=== PATIENT | female | born 1990 | race Caucasian/White ===

== ENCOUNTER 2020-11-03 12:30 | Observation (INO) | payer BC ==
[2020-11-03 15:54] LABS: BASO % 0.3 % (0-2.0); EOS % 1.1 % (0-4.5); HEMATOCRIT 31.3 % (32.4-45.2); HEMOGLOBIN 10.3 GM/dL (10.7-15.3); LYMPH % 15.9 % (8-40); MCH 24.9 pg (25.7-33.7); MCHC 32.8 g/dl (32.0-36.0); MEAN CELL VOLUME 75.9 fl (80-96); MEAN PLT VOLUME 8.2 fl (7.5-11.1); MONO % 6.3 % (3.8-10.2); NEUT % 76.4 % (42.8-82.8); PLATELET COUNT 263 K/MM3 (134-434); RBC 4.13 M/mm3 (3.60-5.2); RDW 15.6 % (11.6-15.6); WHITE BLOOD COUNT 11.2 K/mm3 (4.0-10.0)
[2020-11-03 16:27] LABS: POTASSIUM 4.2 mmol/L (3.5-5.1)
[2020-11-03 16:29] LABS: ALBUMIN 2.9 g/dl (3.4-5.0); BLOOD UREA NITROGEN 8.6 mg/dL (7-18)
[2020-11-03 16:31] LABS: ALBUMIN 2.8 g/dl (3.4-5.0)
[2020-11-03 16:33] LABS: CREATININE 0.5 mg/dL (0.55-1.3)
[2020-11-03 16:34] LABS: BILIRUBIN,DIRECT 0.3 mg/dL (0.0-0.2); BILIRUBIN,TOTAL 0.7 mg/dL (0.2-1); TOT PROT 6.6 g/dl (6.4-8.2)
[2020-11-03 16:36] LABS: TOT PROT 6.6 g/dl (6.4-8.2)
[2020-11-03 17:14] LABS: PH,URINE 5.5 (5.0-8.0); URINE APPEARANCE CLEAR; URINE BILIRUBIN NEGATIVE (NEGATIVE); URINE COLOR YELLOW; URINE GLUCOSE (UA) NEGATIVE (NEGATIVE); URINE KETONE 1+ (NEGATIVE); URINE LEUK ESTERASE NEGATIVE (NEGATIVE); URINE NITRITE NEGATIVE (NEGATIVE); URINE PROTEIN NEGATIVE (NEGATIVE); URINE UROBILINOGEN 0.2 mg/dL (0.2-1.0)
[2020-11-03 17:22] LABS: EPI CELLS 25 /uL (0-25.1); HYALINE CASTS 1 /uL (0-3.1); URINE BACTERIA 322 /uL (0-1359); URINE RBC 22 /uL (0-23.9); URINE WBC 16 /uL (0-25.8)
[2020-11-03 19:10] VITALS: BMI 37.4
[2020-11-04 09:01] LABS: BASO % 0.5 % (0-2.0); EOS % 2.1 % (0-4.5); HEMATOCRIT 30.3 % (32.4-45.2); HEMOGLOBIN 9.9 GM/dL (10.7-15.3); LYMPH % 20.6 % (8-40); MCHC 32.6 g/dl (32.0-36.0); MEAN CELL VOLUME 76.6 fl (80-96); MEAN PLT VOLUME 8.5 fl (7.5-11.1); MONO % 8.3 % (3.8-10.2); NEUT % 68.5 % (42.8-82.8); PLATELET COUNT 227 K/MM3 (134-434); RBC 3.95 M/mm3 (3.60-5.2); WHITE BLOOD COUNT 9.4 K/mm3 (4.0-10.0)
[2020-11-04 09:10] LABS: POTASSIUM 4.3 mmol/L (3.5-5.1)
[2020-11-04 09:13] LABS: ALBUMIN 2.6 g/dl (3.4-5.0); BLOOD UREA NITROGEN 7.4 mg/dL (7-18); CALCIUM 8.6 mg/dL (8.5-10.1)
[2020-11-04 09:16] LABS: CREATININE 0.5 mg/dL (0.55-1.3)
[2020-11-04 09:17] LABS: BILIRUBIN,TOTAL 0.8 mg/dL (0.2-1)
[2020-11-04 11:52] VITALS: BP 129/70; PULSE 96; TEMP 97.9
== END 2020-11-04 17:30 | disposition home or self-care (01) ==
LOC: JDEL 12:30 → JLDR 17:00 → J3W 20:30
PROVIDERS: ADMIT Obstetrics & Gynecology; ATTEND Obstetrics & Gynecology
DX: O60.00 Preterm labor without delivery, unspecified trimester (principal)
CPT/HCPCS: 36415; 76705-TC; 80053; 80076; 81003; 83615; 84550; 85025; 99285-25; C9803; G0378; U0003

== ENCOUNTER 2020-11-30 08:06 | Inpatient (IN) | payer BC ==
[2020-11-30] MEDS ORDERED: CITRIC ACID/SODIUM CITRATE 30 ML UNIT-DOSE CUP PO ONE (09:44)
[2020-11-30 09:55] VITALS: BMI 37.8
[2020-11-30] MEDS ORDERED: ELECTROLYTE-148 SOLN 500 ML IV ONE (10:26)
[2020-11-30] MEDS ORDERED: ELECTROLYTE-148 SOLN 1,000 ML IV SCH (10:30)
[2020-11-30] MEDS ORDERED: morphine SULFATE/Preservative Free 0.5 MG/ML (1cc Syringe) ONE (11:19)
[2020-11-30] MEDS ORDERED: KETOROLAC TROMETHAMINE 30 MG/1 ML VIAL ONE (12:09)
[2020-11-30 12:21] LABS: CORD BASE EXCESS -0.6 mmol/L (0-2); CORD PCO2 49.6 mmHg (30-78); CORD pH 7.338 (7.14-7.44)
[2020-11-30 12:23] LABS: CORD HCO3 25.6 mmHg (20-29); CORD PCO2 58.6 mmHg (30-78); CORD pH 7.258 (7.14-7.44)
[2020-11-30] MEDS ORDERED: OXYTOCIN 20 UNITS in 0.9% NS 20 UNIT/1,000 ML INFUS.BAG IV SCH (12:30)
[2020-11-30] MEDS ORDERED: SENNOSIDES/DOCUSATE COMBO (SENNA PLUS) TABLET (UD) PO PRN (12:30)
[2020-11-30] MEDS ORDERED: METHYLERGONOVINE MALEATE 0.2 MG/1 ML AMP IM PRN (12:30)
[2020-11-30] MEDS ORDERED: WITCH HAZEL 50% (TUCKS) 40 PAD/JAR PAD TP PRN (12:30)
[2020-11-30] MEDS ORDERED: IBUPROFEN 800 MG/8 ML IJ IVPB PRN (12:30)
[2020-11-30] MEDS ORDERED: oxyCODONE HCL 5 MG TABLET PO PRN (12:30)
[2020-11-30] MEDS ORDERED: OXYTOCIN 20 UNITS in 0.9% NS 20 UNIT/1,000 ML INFUS.BAG IV ONE (13:19)
[2020-12-01] MEDS: SIMETHICONE 80 MG TAB.CHEW (FP) PO PRN ×3 (06:02→23:27)
[2020-12-01] MEDS: IBUPROFEN 600 MG TABLET (FP) PO PRN ×4 (06:02→23:26)
[2020-12-01] MEDS: ACETAMINOPHEN 325 MG TABLET (FP) PO PRN ×4 (06:03→23:26)
[2020-12-01 07:12] LABS: BASO % 0.4 % (0-2.0); EOS % 1.5 % (0-4.5); HEMATOCRIT 27.4 % (32.4-45.2); HEMOGLOBIN 9.1 GM/dL (10.7-15.3); LYMPH % 15.7 % (8-40); MCH 24.4 pg (25.7-33.7); MCHC 33.2 g/dl (32.0-36.0); MEAN CELL VOLUME 73.3 fl (80-96); MEAN PLT VOLUME 8.4 fl (7.5-11.1); MONO % 6.2 % (3.8-10.2); NEUT % 76.2 % (42.8-82.8); PLATELET COUNT 218 K/MM3 (134-434); RBC 3.74 M/mm3 (3.60-5.2); RDW 16.7 % (11.6-15.6); WHITE BLOOD COUNT 10.1 K/mm3 (4.0-10.0)
[2020-12-01] MEDS: ENOXAPARIN NA (PORCINE) 40 MG/0.4 ML DISP.SYRIN SQ SCH (10:13)
[2020-12-01] MEDS: PRENATAL VITAMINS W/ FOLIC ACID TABLET (FP) PO SCH (10:13)
[2020-12-01] MEDS ORDERED: BISACODYL 10 MG SUPP.RECT RC PRN (12:30)
[2020-12-02 08:11] LABS: BASO % 0.3 % (0-2.0); EOS % 2.1 % (0-4.5); HEMATOCRIT 26.8 % (32.4-45.2); HEMOGLOBIN 8.9 GM/dL (10.7-15.3); LYMPH % 17.8 % (8-40); MCH 24.7 pg (25.7-33.7); MCHC 33.3 g/dl (32.0-36.0); MEAN CELL VOLUME 74.3 fl (80-96); MEAN PLT VOLUME 8.4 fl (7.5-11.1); MONO % 7.3 % (3.8-10.2); NEUT % 72.5 % (42.8-82.8); PLATELET COUNT 233 K/MM3 (134-434); RDW 16.6 % (11.6-15.6); WHITE BLOOD COUNT 8.8 K/mm3 (4.0-10.0)
[2020-12-02] MEDS: PRENATAL VITAMINS W/ FOLIC ACID TABLET (FP) PO SCH (09:01)
[2020-12-02] MEDS: IBUPROFEN 600 MG TABLET (FP) PO PRN (09:01)
[2020-12-02] MEDS: ENOXAPARIN NA (PORCINE) 40 MG/0.4 ML DISP.SYRIN SQ SCH (09:01)
[2020-12-02] MEDS: ACETAMINOPHEN 325 MG TABLET (FP) PO PRN (09:02)
[2020-12-02 09:12] VITALS: BP 127/83; PULSE 77; TEMP 98.4
[2020-12-02 09:21] LABS: ALBUMIN 2.5 g/dl (3.4-5.0)
[2020-12-02 09:24] LABS: BILIRUBIN,DIRECT 0.2 mg/dL (0.0-0.2)
[2020-12-02 09:26] LABS: BILIRUBIN,TOTAL 0.7 mg/dL (0.2-1); TOT PROT 5.7 g/dl (6.4-8.2)
== END 2020-12-02 12:15 | disposition home or self-care (01) | DRG 787 ==
LOC: JLDR 08:06 → J3W 13:50
PROVIDERS: ADMIT Obstetrics & Gynecology; ATTEND Obstetrics & Gynecology
PROC: 10D00Z1 Extraction of Products of Conception, Low, Open Approach (ICD-10-PCS; principal; 2020-11-30)
DX: O32.1XX0 Maternal care for breech presentation, not applicable or unspecified (principal); O16.3 Unspecified maternal hypertension, third trimester; O99.214 Obesity complicating childbirth; E66.9 Obesity, unspecified; O90.81 Anemia of the puerperium; D64.9 Anemia, unspecified; R74.01 Elevation of levels of liver transaminase levels; Z14.8 Genetic carrier of other disease; Z3A.39 39 weeks gestation of pregnancy; Z37.0 Single live birth
CPT/HCPCS: 36415; 36600; 80076; 82803; 85025; 88307-TC

== ENCOUNTER 2022-10-07 04:26 | Day surgery (SDC) | payer BC ==
[2022-10-05 16:53] VITALS: BMI 32.5
[~2022-10-07 04:26] MED LIST: ceFAZolin SODIUM 1 GM VIAL IVPB ONE
[2022-10-07] MEDS ORDERED: LIDOCAINE HCL/PF 2% SDV 5ML VIAL ONE (13:57)
[2022-10-07] MEDS ORDERED: PROPOFOL 20 ML ONE (13:58)
[2022-10-07] MEDS ORDERED: MIDAZOLAM HCL 2 MG/2 ML SINGLE DOSE VIAL ONE (13:58)
[2022-10-07] MEDS ORDERED: oxyCODONE HCL 5 MG TABLET PO PRN (14:25)
[2022-10-07] MEDS ORDERED: IBUPROFEN 400 MG TABLET (FP) PO PRN (14:25)
[2022-10-07] MEDS ORDERED: ACETAMINOPHEN 325 MG TABLET (FP) PO PRN (14:25)
[2022-10-07] MEDS ORDERED: ONDANSETRON 4 MG/2 ML VIAL IVPUSH PRN (14:25)
[2022-10-07] MEDS ORDERED: DEXTROSE 5% IVPB ONE (14:28)
[2022-10-07] MEDS ORDERED: WATER IVPB ONE (14:28)
[2022-10-07] MEDS ORDERED: DOXYCYCLINE IVPB ONE (14:28)
[2022-10-07] MEDS ORDERED: DOXYCYCLINE HYCLATE 100 MG VIAL IVPB ONE (14:48)
[2022-10-07] MEDS ORDERED: METHYLERGONOVINE MALEATE 0.2 MG/1 ML AMP IM ONE (14:48)
[2022-10-07] MEDS ORDERED: LACTATED RINGERS SOLUTION 1,000 ML IV SCH (15:00)
[2022-10-07] MEDS ORDERED: ACETAMINOPHEN INJECTION 100 ML IVPB ONE (15:27)
[2022-10-07 16:54] VITALS: RESP 20; TEMP 97.8
[2022-10-07 18:18] VITALS: BP 124/66; PULSE 92
== END 2022-10-07 18:20 | disposition home or self-care (01) ==
LOC: JASU-SURG 04:26
PROVIDERS: ATTEND Obstetrics & Gynecology
PROC: 10A07ZZ Abortion of Products of Conception, Via Natural or Artificial Opening (ICD-10-PCS; principal; 2022-10-07 15:00)
DX: Z33.2 Encounter for elective termination of pregnancy (principal)
CPT/HCPCS: 76998-TC; 88305-TC; 94760

== ENCOUNTER 2024-04-13 20:05 | Inpatient (IN) | payer BC ==
[2024-04-13 21:27] LABS: BASO % 0.3 % (0-2.0); EOS % 1.9 % (0-4.5); HEMATOCRIT 31.2 % (32.4-45.2); HEMOGLOBIN 10.3 GM/dL (10.7-15.3); LYMPH % 22.8 % (8-40); MCH 23.9 pg (25.7-33.7); MCHC 32.8 g/dl (32.0-36.0); MEAN CELL VOLUME 72.9 fl (80-96); MEAN PLT VOLUME 8.6 fl (7.5-11.1); PLATELET COUNT 240 10^3/uL (134-434); RBC 4.28 M/mm3 (3.60-5.2); RDW 16.5 % (11.6-15.6); WHITE BLOOD COUNT 9.4 K/mm3 (4.0-10.0)
[2024-04-13 21:28] LABS: INR 0.95 (0.83-1.09); PROTHROMBIN TIME (PATIENT) 10.9 SEC (9.7-13.0)
[2024-04-13 21:31] LABS: ACTIVATED PTT 26.5 SECONDS (25.2-36.5)
[2024-04-13] MEDS ORDERED: BETAMET ACET/BETAMET NA PH 30 MG/5 ML VIAL ONE (21:39)
[2024-04-13 21:42] LABS: POTASSIUM 4.2 mmol/L (3.5-5.1)
[2024-04-13 21:43] LABS: CALCIUM 9.2 mg/dL (8.5-10.1)
[2024-04-13 21:44] LABS: BLOOD UREA NITROGEN 8.1 mg/dL (7-18)
[2024-04-13 21:47] LABS: CREATININE 0.6 mg/dL (0.55-1.3)
[2024-04-13] MEDS: BETAMET ACET/BETAMET NA PH 30 MG/5 ML VIAL IM ONE (21:50)
[2024-04-13] MEDS: AZITHROMYCIN 500 MG TABLET PO ONE (22:20)
[2024-04-13] MEDS: valACYclovir HCL 500 MG TABLET (FP) PO SCH (22:20)
[2024-04-13] MEDS ORDERED: AMPICILLIN SODIUM 2 GM VIAL ONE (22:29)
[2024-04-13 22:37] LABS: HIV INTERPRETATION NEGATIVE (NEGATIVE)
[2024-04-13] MEDS: AMPICILLIN - 2 GM in SODIUM CHLORIDE 100 ML IVPB SCH (22:45)
[2024-04-13] MEDS: ELECTROLYTE-148 SOLN 500 ML IV ONE (22:50)
[2024-04-13] MEDS: ELECTROLYTE-148 SOLN 1,000 ML IV SCH (22:51)
[2024-04-14 03:27] VITALS: BMI 37.0
[2024-04-14] MEDS ORDERED: SODIUM CHLORIDE 100 ML IVPB ONE ×4 (03:27→21:02)
[2024-04-14] MEDS ORDERED: AMPICILLIN SODIUM 2 GM VIAL ONE ×4 (03:27→21:02)
[2024-04-14] MEDS ORDERED: BUTORPHANOL TARTRATE 2 MG/ML VIAL ONE (05:01)
[2024-04-14] MEDS ORDERED: PROMETHAZINE HCL 25 MG/1 ML VIAL ONE (05:01)
[2024-04-14] MEDS: BUTORPHANOL TARTRATE 2 MG/ML VIAL IVPB ONE (05:10)
[2024-04-14] MEDS: PROMETHAZINE HCL 25 MG/1 ML VIAL IVPB ONE (05:10)
[2024-04-14] MEDS: BETAMET ACET/BETAMET NA PH 30 MG/5 ML VIAL IM ONE (10:15)
[2024-04-14] MEDS: SERTRALINE HCL 50 MG TABLET (FP) PO SCH (10:38)
[2024-04-14 11:42] LABS: BASO % 0.4 % (0-2.0); EOS % 0.1 % (0-4.5); HEMATOCRIT 31.5 % (32.4-45.2); HEMOGLOBIN 10.1 GM/dL (10.7-15.3); LYMPH % 13.5 % (8-40); MCH 23.8 pg (25.7-33.7); MEAN CELL VOLUME 74.5 fl (80-96); MEAN PLT VOLUME 8.9 fl (7.5-11.1); MONO % 3.9 % (3.8-10.2); NEUT % 82.1 % (42.8-82.8); PLATELET COUNT 259 10^3/uL (134-434); RBC 4.22 M/mm3 (3.60-5.2); RDW 16.4 % (11.6-15.6)
[2024-04-15] MEDS ORDERED: AMPICILLIN SODIUM 2 GM VIAL ONE ×2 (03:06→09:18)
[2024-04-15] MEDS ORDERED: SODIUM CHLORIDE 100 ML IVPB ONE (03:06)
[2024-04-15] MEDS ORDERED: ACETAMINOPHEN 325 MG TABLET (FP) PO PRN (12:22)
[2024-04-15] MEDS ORDERED: ONDANSETRON 4 MG/2 ML VIAL IVPUSH PRN (12:22)
[2024-04-15] MEDS ORDERED: IBUPROFEN 600 MG TABLET (FP) PO PRN (12:22)
[2024-04-15] MEDS ORDERED: morphine SULFATE/PF 1 MG/2 ML (2cc Syringe - QUVA) ONE (12:30)
[2024-04-15] MEDS ORDERED: SODIUM CHLORIDE 0.9% P/F 10 ML VIAL IJ ONE (12:31)
[2024-04-15] MEDS ORDERED: PHENYLEPHRINE HCL 10 MG/1 ML SINGLE DOSE VIAL ONE (12:31)
[2024-04-15] MEDS ORDERED: ceFAZolin SODIUM 1 GM VIAL ONE (12:31)
[2024-04-15] MEDS ORDERED: OXYTOCIN 10 UNITS/ML VIAL ONE ×2 (12:57→13:30)
[2024-04-15] MEDS ORDERED: ONDANSETRON 4 MG/2 ML VIAL ONE (13:11)
[2024-04-15] MEDS ORDERED: METOCLOPRAMIDE HCL INJECTION 10 MG/2 ML VIAL ONE (13:11)
[2024-04-15] MEDS ORDERED: MIDAZOLAM HCL 2 MG/2 ML SINGLE DOSE VIAL ONE (13:29)
[2024-04-15 13:45] LABS: CORD HCO3 29.6 mmHg (20-29); CORD PCO2 69.6 mmHg (30-78); CORD pH 7.246 (7.14-7.44)
[2024-04-15 13:47] LABS: CORD BASE EXCESS -1.2 mmol/L (0-2); CORD HCO3 24.9 mmHg (20-29); CORD PCO2 46.3 mmHg (30-78); CORD pH 7.349 (7.14-7.44)
[2024-04-15] MEDS: morphine SULFATE/PF 1 MG/2 ML (2cc Syringe - QUVA) EP ONE (14:00)
[2024-04-15] MEDS ORDERED: OXYTOCIN 20 UNITS in 0.9% NS 20 UNIT/1,000 ML INFUS.BAG IV ONE (15:40)
[2024-04-15] MEDS ORDERED: METHYLERGONOVINE MALEATE 0.2 MG/1 ML AMP IM PRN (16:00)
[2024-04-15] MEDS ORDERED: BENZOCAINE 20% 57 GM BOTTLE TP PRN (16:00)
[2024-04-15] MEDS ORDERED: WITCH HAZEL 50% (TUCKS) 40 PAD/JAR PAD TP PRN (16:00)
[2024-04-15] MEDS: OXYTOCIN 20 UNITS in 0.9% NS 20 UNIT/1,000 ML INFUS.BAG IV SCH (16:15)
[2024-04-15] MEDS: IBUPROFEN 800 MG/8 ML IJ IVPB PRN (21:56)
[2024-04-16 02:12] VITALS: RESP 18
[2024-04-16] MEDS ORDERED: oxyCODONE HCL 5 MG TABLET PO PRN ×2 (04:00)
[2024-04-16 07:22] LABS: BASO % 0.9 % (0-2.0); EOS % 1.1 % (0-4.5); HEMATOCRIT 30.2 % (32.4-45.2); HEMOGLOBIN 9.7 GM/dL (10.7-15.3); LYMPH % 21.5 % (8-40); MCH 24.1 pg (25.7-33.7); MEAN CELL VOLUME 75.2 fl (80-96); MEAN PLT VOLUME 8.9 fl (7.5-11.1); MONO % 5.7 % (3.8-10.2); NEUT % 70.8 % (42.8-82.8); PLATELET COUNT 217 10^3/uL (134-434); RBC 4.01 M/mm3 (3.60-5.2); RDW 16.8 % (11.6-15.6); WHITE BLOOD COUNT 9.2 K/mm3 (4.0-10.0)
[2024-04-16] MEDS: PRENATAL VITAMINS W/ FOLIC ACID TABLET (FP) PO SCH (09:40)
[2024-04-16] MEDS ORDERED: BISACODYL 10 MG SUPP.RECT RC PRN (16:00)
[2024-04-16] MEDS: ACETAMINOPHEN 325 MG TABLET (FP) PO PRN (17:41)
[2024-04-16] MEDS: SIMETHICONE 80 MG TAB.CHEW (FP) PO PRN (21:25)
[2024-04-16] MEDS: IBUPROFEN 600 MG TABLET (FP) PO PRN (21:42)
[2024-04-17 08:56] VITALS: BP 128/77; PULSE 81; TEMP 98.1
== END 2024-04-17 11:32 | disposition home or self-care (01) | DRG 788 ==
LOC: NEWFOCUS 20:05 → JLDR 21:10 → J3W 04-15 17:00
PROVIDERS: ADMIT Obstetrics & Gynecology; ATTEND Obstetrics & Gynecology
PROC: 10D00Z1 Extraction of Products of Conception, Low, Open Approach (ICD-10-PCS; principal; 2024-04-15)
DX: O42.913 Preterm premature rupture of membranes, unspecified as to length of time between rupture and onset of labor, third trimester (principal); O34.219 Maternal care for unspecified type scar from previous cesarean delivery; Z3A.35 35 weeks gestation of pregnancy; Z37.0 Single live birth
CPT/HCPCS: 36415; 36600; 59409; 76815-TC; 80048; 82803; 85025; 85610; 85730; 86480; 86780; 86803; 86850; 86900; 86901; 87081; 87340; 87389; 88307-TC; 94002; 96372